=== PATIENT | female | born 1950 | race Caucasian/White ===

== ENCOUNTER → 2021-09-12 | Outpatient (CLI) | payer MEDICARE ==
[~2021-09-12] MED LIST: BENEFIBER1 EAC1 PO; CALCIUM PO; DIOVAN80 MG PO; LASIX40 MG PO; METOPROLOL PO; MIRALAX17 GM PO; NORCO 5-325 TA1 EACH PO; OCUVITE EYE PL1 EACH PO; OMEPRAZOLE20 M1 PO; VIT D PO; VIT E PO; ZOCOR20 MG PO
== END ==
LOC: KOH-I 14:12
DX: J18.9 Pneumonia, unspecified organism (principal); R05.9 Cough, unspecified
CPT/HCPCS: 71046

== ENCOUNTER → 2022-01-21 | Outpatient (CLI) | payer MEDICARE | LOC: KOH-I 14:29 | DX: M25.552 Pain in left hip (principal) | CPT/HCPCS: 73502 ==